=== PATIENT | female | born 1985 | race African-American/Black ===

== ENCOUNTER 2020-01-02 08:18 | Emergency (ER) | payer OTHER ==
[2020-01-02 08:26] VITALS: BP 115/62
[2020-01-02 08:41] LABS: RAPID STREP SCREEN POSITIVE (Negative)
[2020-01-02] MEDS ORDERED: AMOXICILLIN 250 MG CAPSULE PO STA (08:57)
[2020-01-02] MEDS ORDERED: DEXAMETHASONE 10 MG/ML VIAL PO STA (08:57)
[2020-01-02] MEDS ORDERED: CHERRY SYRUP 10 ML UDC PO ONE (08:57)
--- NOTE | 2020-01-02 09:01 | ED Physician Documentation ---
History of Present Illness - Stated complaint Stated Complaint: SORE THROAT - Chief complaint Chief Complaint: Heent - Additonal information Additional information: This is a 34-year-old female who presents with 3 days of sore throat. She s tates the sore throat has gotten worse during this time, and hurts to eat now. Her pain is currently moderate in severity. She has been able to swallow liquids. She denies any difficulty breathing. She has had an intermittent dry cough at night, no rhinorrhea, no measured fever. Review of Systems Constitutional: denies: Fever Throat: reports: Sore throat Cardiac: denies: Chest pain / pressure Respiratory: denies: Dyspnea GI: denies: Abdominal Pain PD PAST MEDICAL HISTORY - Past Medical History Past Medical History: No - Present Medications Home Medications: Ambulatory Orders Medication Instructions Recorded Confirmed Amoxicillin 500 mg PO BID #20 capsule 01/02/20 - Allergies Allergies/Adverse Reactions: Allergies Allergy/AdvReac Type Severity Reaction Status Date / Time No Known Drug Allergies Allergy Verified 01/02/20 08:26 - Social History Does the pt smoke?: No Smoking Status: Never smoker PD ED PE NORMAL - Vitals Vital signs reviewed: Yes - General General: Alert and oriented X 3, No acute distress - HEENT HEENT: Other (Posterior pharynx is erythematous, there is no edema, no exudate. Uvula is midline) - Neck Neck: Supple, no meningeal sign - Cardiac Cardiac: RRR - Respiratory Respiratory: No respiratory distress - Abdomen Abdomen: Non distended - Derm Derm: Warm and dry - Neuro Neuro: Alert and oriented X 3 - Psych Psych: Normal mood, Normal affect Results - Vitals Vitals: Vital Signs - 24 hr 01/02/20 08:24 Temperature 37.1 C Heart Rate 71 Respiratory 16 Rate Blood Pressure 115/62 O2 Saturation 100 Oxygen O2 Source Room air - Labs Labs: Laboratory Tests 01/02/20 08:25 Group A Strep Rapid POSITIVE H PD MEDICAL DECISION MAKING - ED course ED course: Patient presents with a sore throat, she is overall well appearing, she does have some cervical lymphadenopathy and erythematous posterior pharynx, she has not had a measured fever, but she also has not had typical viral symptoms such as nasal congestion. Strep swab was sent and is positive. After discussing treatment options with her we elected to treat with dexamethasone as well as a course of amoxicillin, with the first dose given here. I reviewed return precautions with the patient including signs of worsening infection or peritonsillar abscess, and she was discharged home in good condition. Departure - Departure Disposition: 01 Home, Self Care Clinical Impression: Strep throat Condition: Good Instructions: ED Strep Pharyngitis Conf Prescriptions: Amoxicillin 500 mg PO BID #20 capsule Comments: You have strep throat, please take the antibiotic as prescribed. If you are having worsening symptoms such as difficulty breathing or swallowing liquids, or swelling on one side of your throat or face, return to the emergency department.
== END 2020-01-02 09:13 | disposition home or self-care (01) ==
LOC: ED 08:18
DX: J02.0 Streptococcal pharyngitis (principal)
CPT/HCPCS: 87430; 99283; 99284; A9270